=== PATIENT | female | born 1980 | race Caucasian/White ===

== ENCOUNTER → 2019-03-25 | Outpatient (CLI) | payer BC ==
[~2019-03-25] MED LIST: MOTRIN 600600 MG/TAB PO; PERCOCET 325 MG1 TA2 PO; PRENTAL 1 PLUS1 TAB PO
== END ==
LOC: MC.RAD 10:23
DX: Z12.31 Encounter for screening mammogram for malignant neoplasm of breast (principal)

== ENCOUNTER → 2020-04-20 | Outpatient (CLI) | payer BC | LOC: MC.RAD 04-15 15:30 | DX: Z12.31 Encounter for screening mammogram for malignant neoplasm of breast (principal) ==

== ENCOUNTER → 2020-06-18 | Outpatient (CLI) | payer BC | LOC: COL.LAB 11:27 | DX: U07.1 COVID-19 (principal) ==

== ENCOUNTER → 2021-09-21 | Outpatient (CLI) | payer BC | LOC: MC.RAD 09:08 | DX: Z12.31 Encounter for screening mammogram for malignant neoplasm of breast (principal); N64.89 Other specified disorders of breast ==

== ENCOUNTER → 2023-07-10 | Outpatient (CLI) | payer BC | LOC: MC.RAD 11:41 | DX: Z12.31 Encounter for screening mammogram for malignant neoplasm of breast (principal) ==